=== PATIENT | male | born 1970 | race Caucasian/White ===

== ENCOUNTER 2021-12-01 12:42 | Outpatient (CLI) | payer OTHER, SELFPAY ==
--- NOTE | 2021-12-01 14:15 | W.ANESCHARGE ---
Anesthesia Charges Start Date/Time Anesthesia Start Date: 12/01/21 Anesthesia Start Time: 13:22 Stop Date/Time Anesthesia Stop Date: 12/01/21 Anesthesia Stop Time: 14:09 Summary Emergency: No
--- NOTE | 2021-12-01 14:38 | W.ANESCHARGE ---
Anesthesia Charges Start Date/Time Anesthesia Start Date: 12/01/21 Anesthesia Start Time: 13:22 Stop Date/Time Anesthesia Stop Date: 12/01/21 Anesthesia Stop Time: 14:09 Summary Emergency: No
== END 2021-12-01 12:43 | disposition home or self-care (01) ==
LOC: OP CLINIC 12:43
PROVIDERS: PCP Family Medicine; Visit Provider Surgery
DX: Z12.11 Encounter for screening for malignant neoplasm of colon (principal); K63.5 Polyp of colon
CPT/HCPCS: 00812; 45385; J2704; J3490

== ENCOUNTER 2023-09-06 07:35 | Outpatient (CLI) | payer OTHER, SELFPAY | END 2023-09-06 07:36 | disposition home or self-care (01) | PROVIDERS: PCP Family Medicine; Visit Provider Family Medicine | DX: Z00.00 Encounter for general adult medical examination without abnormal findings (principal); E78.1 Pure hyperglyceridemia; K76.0 Fatty (change of) liver, not elsewhere classified; Z11.59 Encounter for screening for other viral diseases; Z12.5 Encounter for screening for malignant neoplasm of prostate; Z13.6 Encounter for screening for cardiovascular disorders; Z13.1 Encounter for screening for diabetes mellitus | CPT/HCPCS: 80053; 80061; 86803; G0103 ==

== ENCOUNTER 2023-09-29 19:34 | Outpatient (CLI) | payer OTHER, SELFPAY ==
--- NOTE | 2023-10-12 12:04 | W.PM.SLEEP ---
Sleep Study Details Details Interpreting Provider: Ruben Date of Sleep Study: 09/29/23 Sleep Study Details: STUDY TYPE:? Home unattended BMI:? 31.5 ORDERING PROVIDER:Perico Miranda INDICATION:? Concern about sleep apnea ? SLEEP SUMMARY:? 435.1 minutes RESPIRATORY SUMMARY:? AHI 18.8, left lateral 10, supine 85.3, right lateral 0.6 Low oxygen 84 2.2% of study oxygen less than 90% Snoring 97.7% of study PERIODIC LIMB MOVEMENTS OF SLEEP:? Not recorded CARDIAC:? Range 44-110, mean 53.5 IMPRESSION:? Moderate obstructive sleep apnea overall. The patient has mild to no apnea in the left and right lateral positions respectively in very severe apnea in the supine position. RECOMMENDATION: Treatment options include CPAP or dental appliance. Dental appliance would only be appropriate if the patient takes measures to avoid supine sleep.
== END 2023-09-29 19:35 | disposition home or self-care (01) ==
LOC: SLEEP 19:34
PROVIDERS: PCP Family Medicine; Visit Provider Otolaryngology
DX: G47.33 Obstructive sleep apnea (adult) (pediatric) (principal)
CPT/HCPCS: 95806

== ENCOUNTER 2024-11-15 12:42 | Outpatient (CLI) | payer OTHER, SELFPAY | END 2024-11-15 12:43 | disposition home or self-care (01) | PROVIDERS: PCP Family Medicine; Visit Provider Family Medicine | DX: G62.9 Polyneuropathy, unspecified (principal) | CPT/HCPCS: 80053; 80061; 82607; 82746; G0103 ==

== ENCOUNTER 2025-01-22 10:28 | Outpatient (CLI) | payer OTHER, SELFPAY ==
--- NOTE | 2025-01-22 11:45 | P.ANES_ITS ---
Anesthesia Charges Start Date/Time Anesthesia Start Date: 01/22/25 Anesthesia Start Time: 11:10 Stop Date/Time Anesthesia Stop Date: 01/22/25 Anesthesia Stop Time: 11:44 Coding CPT Codes CPT Codes: MIKA LWR INTST NDSC NOS - [id number] ([id number]) P2 - PATIENT W/MILD SYST DISEASE, QK - TOLL TRANSMISSION WORKER 2-4 CNCRNT ANES PROC, QX - SOFTWARE APPLICATIONS ENGINEER SVC W/ MD MED DIRECTION
--- NOTE | 2025-01-22 11:45 | W.ANESCHARGE ---
Anesthesia Charges Start Date/Time Anesthesia Start Date: 01/22/25 Anesthesia Start Time: 11:10 Stop Date/Time Anesthesia Stop Date: 01/22/25 Anesthesia Stop Time: 11:44 Coding CPT Codes CPT Codes: MIKA LWR INTST NDSC NOS - [id number] ([id number]) P2 - PATIENT W/MILD SYST DISEASE, QK - AITCHBONE BREAKER 2-4 CNCRNT ANES PROC, QX - THIRD RAIL INSTALLER SVC W/ MD MED DIRECTION
--- NOTE | 2025-01-22 12:25 | P.ANES_ITS ---
Anesthesia Charges Start Date/Time Anesthesia Start Date: 01/22/25 Anesthesia Start Time: 11:10 Stop Date/Time Anesthesia Stop Date: 01/22/25 Anesthesia Stop Time: 11:44 Coding CPT Codes CPT Codes: MIKA LWR INTST NDSC NOS - [id number] ([id number]) P2 - PATIENT W/MILD SYST DISEASE, QK - DATA WAREHOUSING MANAGER 2-4 CNCRNT ANES PROC, QX - RECONCILER SVC W/ MD MED DIRECTION
--- NOTE | 2025-01-22 12:25 | W.ANESCHARGE ---
Anesthesia Charges Start Date/Time Anesthesia Start Date: 01/22/25 Anesthesia Start Time: 11:10 Stop Date/Time Anesthesia Stop Date: 01/22/25 Anesthesia Stop Time: 11:44 Coding CPT Codes CPT Codes: MIKA LWR INTST NDSC NOS - [id number] ([id number]) P2 - PATIENT W/MILD SYST DISEASE, QK - PROCESS ARTIST 2-4 CNCRNT ANES PROC, QX - BOX ESTIMATOR SVC W/ MD MED DIRECTION
== END 2025-01-22 10:29 | disposition home or self-care (01) ==
LOC: OP CLINIC 10:29
PROVIDERS: PCP Family Medicine; Visit Provider Surgery
DX: D12.3 Benign neoplasm of transverse colon (principal); Z86.0100 Personal history of colon polyps, unspecified
CPT/HCPCS: 00811; 45385; J2704